=== PATIENT | female | born 1980 | race African-American/Black ===

== ENCOUNTER 2016-08-01 06:40 | Emergency (ER) | payer MEDICAID, OTHER ==
[~2016-08-01] VITALS: Ht 157.5 cm; Wt 120.0 kg
[~2016-08-01 06:40] MED LIST: HYDR-3533 PO
[2016-08-01 06:43] VITALS: BP 139/86; PULSE 114; RESP 16; TEMP 98.5; O2SAT 99
--- NOTE | 2016-08-01 07:18 | PD ---
HPI Chief Complaint: Psychiatric Symptoms Time Seen by Provider: 07:13 Travel History International Travel<30 days: No Contact w/Intl Traveler<30days: No Traveled to known affect area: No History of Present Illness HPI 35-year-old with increasing depression symptoms with past for 5 days. No history of previous mental health problems. She's been tearful and depressed. No stressors that she can identify. Lives with her family and . No suicidality. Here because she feels that she has a talk to somebody because she started crying on her way to work. No other complaints. History Past Medical History Narrative Medical Asthma : 3 Para: 3 Social History Alcohol Use: No Tobacco Use: No Allergies-Medications (Allergen,Severity, Reaction): Coded Allergies: [place] (Verified Allergy, Severe, Rash lips, 06/09/16) Pineapple (Verified Allergy, Severe, Rash lips, 06/09/16) *MDRO Multi-Drug Resistant Organism (Unverified Adverse Reaction, Unknown , 06/09/16) 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 Reported Meds & Prescriptions Reported Meds & Active Scripts Active Lortab (Hydrocodone-Acetaminophen) 5-325 Mg Tab 1-2 Tab PO Q6H PRN Review of Systems Except as stated in HPI: all other systems reviewed are Neg Physical Exam Narrative GENERAL: 35-year-old woman, tearful and sad. SKIN: Warm and dry. CARDIOVASCULAR: Warm and well perfused. RESPIRATORY: Normal rate and effort. MUSCULOSKELETAL: No gross deformity NEUROLOGICAL: Awake and alert. No gross deficits. Data Data Last Documented VS Vital Signs Date Time Temp Pulse Resp B/P Pulse Ox O2 Delivery O2 Flow Rate FiO2 08/01/16 06:43 98.5 114 16 139/86 99 MDM Medical Decision Making Medical Screen Exam Complete: Yes Emergency Medical Condition: Yes Differential Diagnosis Depression, adjustment reaction, menopause, other Narrative Course Medical decision making A 35-year-old presents to department Saturday of. Denies SI. Good social support. No history of mental health problems. Discussed options with patient. Offered to keep her to seek mental health screen her, discussed this with take most of the day. Also offered outpatient resources. Patient preferred outpatient resources at this time. She seems well versed for self- harm. Recommend outpatient follow-up. Patient Instructions: General Instructions Additional Instructions: Follow-up with mental health resources provided. Return to the emergent department any point if he feels like her having worsening depression, thoughts of hurting herself or others, or any other new or worsening symptoms. Med/Other Pt SpecificInfo: No Change to Meds Disposition: 01 DISCHARGE HOME Condition: Stable Ghassan Tavarez MD Aug 01, 2016 07:18
--- NOTE | 2016-08-01 07:43 | PD ---
Data Data Last Documented VS Vital Signs Date Time Temp Pulse Resp B/P Pulse Ox O2 Delivery O2 Flow Rate FiO2 08/01/16 06:43 98.5 114 16 139/86 99 MDM Supervised Visit with ADÁN: No Diagnosis Primary Impression: Depression Patient Instructions: General Instructions Departure Forms: Tests/Procedures Additional Instruction: Follow-up with mental health resources provided. Return to the emergent department any point if he feels like her having worsening depression, thoughts of hurting herself or others, or any other new or worsening symptoms. Disposition: 01 DISCHARGE HOME Condition: Stable Ghassan Tavarez MD Aug 01, 2016 07:43
== END 2016-08-01 07:50 | disposition home or self-care (01) ==
LOC: NETRI 06:40
DX: F32.9 Major depressive disorder, single episode, unspecified (principal); J45.909 Unspecified asthma, uncomplicated
CPT/HCPCS: 99283

== ENCOUNTER 2016-12-11 00:37 | Emergency (ER) | payer MEDICAID, OTHER ==
[~2016-12-11] VITALS: Ht 157.5 cm; Wt 120.0 kg
[2016-12-11 00:40] VITALS: BP 148/87; PULSE 106; RESP 16; TEMP 98.7; O2SAT 100
[2016-12-11 01:57] VITALS: BP 177/83; PULSE 103; PULSE 113; RESP 20; O2SAT 100
[2016-12-11] MEDS ORDERED: ALBU0.63 NEB (01:57)
[2016-12-11] MEDS ORDERED: predniSONE 20 MG TAB PO ONE (02:45)
[2016-12-11] MEDS: RESP: ALBUTEROL 2.5 MG/IPRATROPIUM 0.5 MG NEB (SCH) INH (02:47)
[2016-12-11] MEDS ORDERED: ALBU1AER5 INH (02:51)
[2016-12-11] MEDS ORDERED: PRED20 PO (02:51)
--- NOTE | 2016-12-11 02:56 | PD ---
HPI Chief Complaint: Respiratory Symptoms Time Seen by Provider: 01:52 Travel History International Travel<30 days: No Contact w/Intl Traveler<30days: No Traveled to known affect area: No History of Present Illness HPI The patient is a 35 year old female who presents to the [facility] emergency department with a history of shortness of breath that she reports began 2 days ago. The patient reports that she has a history of asthma and bronchitis. She reports that she has an associated dry cough. She denies having any nasal discharge or fever associated with this. She reports that she has been using her albuterol solution by nebulizer treatments more frequently. She denies having any other inhalers or a rescue inhaler to use when she is out. The patient denies having any chest pain or pressure. She denies having any lower extremity edema, calf pain, or erythema. She denies having any prior history of DVT or PE. The patient denies any neck pain, abdominal pain, vomiting , diarrhea, urinary symptoms, or neurologic symptoms. PFS Past Medical History Narrative Medical The patient's past medical history is significant for asthma, bronchitis, anemia , anxiety. Anemia: Yes Asthma: Yes Blood Disorders: No Anxiety: Yes Heart Rhythm Problems: No Cardiac Catheterization: No Cardiovascular Problems: Yes High Cholesterol: No Congestive Heart Failure: No Diabetes: Yes Patient Takes Glucophage: No Diminished Hearing: No Heparin Induced Thrombocytopen: No Hypertension: Yes Psychiatric: Yes Respiratory: Yes (asthma) Immunizations Current: Yes Migraines: Yes Tetanus Vaccination: < 5 Years Influenza Vaccination: Yes ?: Not : 3 Para: 3 Miscarriage: 0 : 0 Tubal Ligation: Yes Past Surgical History Narrative Surgical The patient's past surgical history is significant for a , bilateral tubal ligation, breast reduction Section: Yes Coronary Artery Bypass Graft: No Gynecologic Surgery: Yes (Breast reduction) Other Surgery: Yes (BREAST REDUCTION) Social History Alcohol Use: No Tobacco Use: No Substance Use: No Allergies-Medications (Allergen,Severity, Reaction): Coded Allergies: [place] (Verified Allergy, Severe, Rash lips, 12/11/16) Pineapple (Verified Allergy, Severe, Rash lips, 12/11/16) *MDRO Multi-Drug Resistant Organism (Unverified Adverse Reaction, Unknown , 12/11/16) 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 Reported Meds & Prescriptions Reported Meds & Active Scripts Active Prednisone 20 Mg Tab 40 Mg PO BID 5 Days Take 40 mg (2 tablets) daily for 5 days Proair Respiclick Inh (Albuterol Sulfate) 90 Mcg/Act Aerp 2 Puff INH Q4-6H PRN Reported Albuterol Neb (Albuterol Sulfate) 0.63 Mg/3 Ml Neb Unknown Dose NEB Q4HR NEB PRN Review of Systems Except as stated in HPI: all other systems reviewed are Neg General / Constitutional: No: Fever Eyes: No: Visual changes HENT: No: Headaches, Rhinorrhea, Congestion Cardiovascular: Positive: Dyspnea on exertion, No: Chest Pain or Discomfort Respiratory: Positive: Cough, Shortness of Breath, Wheezing Gastrointestinal: No: Nausea, Vomiting, Diarrhea, Abdominal Pain Genitourinary: No: Dysuria Musculoskeletal: No: Pain Skin: No Rash Neurologic: No: Weakness Psychiatric: No: Depression Endocrine: No: Polydipsia Hematologic/Lymphatic: No: Easy Bruising Physical Exam Narrative General: The patient is a well-developed well-nourished female in no acute distress Head and Neck exam: Head is normocephalic atraumatic. Eyes: EOMI, pupils are equal round and reactive to light. Nose: Midline septum with pink mucous membranes Mouth: Dentition unremarkable. Moist mucus membranes. Posterior oropharynx is not erythematous. No tonsillar hypertrophy. Uvula midline. Airway patent. Neck: No palpable lymphadenopathy. No nuchal rigidity. No thyromegaly. Cardiovascular: Regular rate and rhythm without murmurs, gallops, or rubs. Lungs: Soft expiratory wheezes audible posteriorly. No rhonchi, no crackles. No accessory muscle use. No paroxysmal abdominal breathing. No tripoding. Equal breath sounds are noted bilaterally. Abdomen: Soft, without tenderness to palpation in all 4 quadrants of the abdomen. No guarding, rebound, or rigidity. Normal bowel sounds are audible. No tenderness on palpation of McBurney's point. Extremities: No clubbing, cyanosis, or edema. 2+ pulses in all 4 extremities. No calf tenderness on palpation. Negative Homans signs. No palpable cords. Back: No costovertebral angle tenderness to palpation. Neurologic Exam: Grossly nonfocal. Skin Exam: No rash noted. Intact skin that is warm and dry. Data Data Last Documented VS Vital Signs Date Time Temp Pulse Resp B/P Pulse Ox O2 Delivery O2 Flow Rate FiO2 12/11/16 01:57 103 20 177/83 100 Room Air 12/11/16 00:40 98.7 Orders Ecg Monitoring (12/11/16 02:36) Oximetry (12/11/16 02:36) Prednisone (Deltasone) (12/11/16 02:45) Albuterol-Ipratropium Neb (Duoneb Neb) (12/11/16 02:45) MDM Medical Decision Making Medical Screen Exam Complete: Yes Emergency Medical Condition: Yes Medical Record Reviewed: Yes Differential Diagnosis Asthma exacerbation, versus pneumonia, versus pneumothorax Narrative Course During the course of the patients emergency department visit, the patients history, examination, and differential diagnosis were reviewed with the patient. The patient was placed on a diagrammer with oximetry and blood pressure monitoring. The patient was provided prednisone 40 mg by mouth 1, DuoNeb 1. The patient reported feeling improved. The patient is resting comfortably and feels better, is alert and in no distress. The patients results and examination findings were discussed with the patient. The repeat examination is unremarkable and benign. The history, exam, diagnostic testing, and current condition do not suggest any significant pathology to warrant further testing, continued ED treatment, admission, or surgical evaluation at this point. The vital signs have been stable. The patient does not have uncontrollable pain, intractable vomiting, or other significant symptoms. The patient's condition is stable and appropriate for discharge. The patient will pursue further outpatient evaluation with a primary care physician or other designated or consulting physician as indicated in the discharge instructions. The patient expressed understanding and was agreeable with this plan. Diagnosis Primary Impression: Asthma exacerbation Referrals: Primary Care Physician 2 days Patient Instructions: Asthma (ED), General Instructions Med/Other Pt SpecificInfo: Prescription(s) given Scripts Prednisone 20 Mg Tab40 Mg PO BID 5 Days Ref 0 Take 40 mg (2 tablets) daily for 5 days Prov:Oralia Gonzalez MD 12/11/16 Albuterol Powder Inh (Proair Respiclick Inh)90 Mcg/Act Aerp2 Puff INH Q4-6H PRN (SHORTNESS OF BREATH) #1 INHALER Ref 0 Prov:Oralia Gonzalez MD 12/11/16 Disposition: 01 DISCHARGE HOME Condition: Stable Oralia Gonzalez MD December 11, 2016 02:56
[2016-12-11 03:13] VITALS: O2SAT 96
== END 2016-12-11 03:27 | disposition home or self-care (01) ==
LOC: NEPC 00:37
DX: J45.901 Unspecified asthma with (acute) exacerbation (principal); E11.9 Type 2 diabetes mellitus without complications; I10 Essential (primary) hypertension; Z87.09 Personal history of other diseases of the respiratory system; Z86.2 Personal history of diseases of the blood and blood-forming organs and certain disorders involving the immune mechanism; Z86.59 Personal history of other mental and behavioral disorders; Z86.79 Personal history of other diseases of the circulatory system; Z86.69 Personal history of other diseases of the nervous system and sense organs
CPT/HCPCS: 94640; 94664; 99284; J7512

== ENCOUNTER 2016-12-19 11:01 | Emergency (ER) | payer MEDICAID ==
[~2016-12-19] VITALS: Ht 157.5 cm; Wt 120.0 kg
[~2016-12-19 11:01] MED LIST changes: +ALBU0.63 NEB; +ALBU1AER5 INH; -HYDR-3533 PO; +PRED20 PO
[2016-12-19 11:03] VITALS: BP 189/88; PULSE 106; RESP 24; TEMP 98.4; O2SAT 98
[2016-12-19] MEDS ORDERED: ASPIRIN 81 MG CHEW TAB PO ONE (11:45)
[2016-12-19] MEDS ORDERED: SODIUM CHLORIDE 0.9% FLUSH 10 ML FLUSH IVF PRN (11:45)
--- NOTE | 2016-12-19 11:47 | PD ---
HPI Chief Complaint: Chest Pain Time Seen by Provider: 11:43 Travel History International Travel<30 days: No Contact w/Intl Traveler<30days: No Traveled to known affect area: No History of Present Illness HPI Patient with a history of asthma, bronchitis, anemia, anxiety, and hypertension presents emergency Department complaining of substernal chest pain that she awoke with this morning. Patient states feels like "someone punched" her in the chest. Patient reports associated shortness of breath with this. Patient states does not feel like her asthma this feels different. Patient denies doing anything for prior to coming to the emergency department. Patient denies anything making it better or worse. Denies any associated diaphoresis, numbness or tingling, nausea, vomiting, abdominal pain, back pain, neck pain, or headache. Denies any recent travel or edema to the extremities. PFSH Past Medical History Anemia: Yes Asthma: Yes Blood Disorders: No Anxiety: Yes Heart Rhythm Problems: No Cardiac Catheterization: No Cardiovascular Problems: Yes High Cholesterol: No Congestive Heart Failure: No Diabetes: Yes Diminished Hearing: No Heparin Induced Thrombocytopen: No Hypertension: Yes Psychiatric: Yes Respiratory: Yes (ASTHMA BRONCHITIS) Immunizations Current: Yes Migraines: Yes ?: Not : 3 Para: 3 Miscarriage: 0 : 0 Tubal Ligation: Yes Past Surgical History Section: Yes Coronary Artery Bypass Graft: No Gynecologic Surgery: Yes (Breast reduction) Other Surgery: Yes (BREAST REDUCTION) Social History Alcohol Use: No Tobacco Use: No Substance Use: No Allergies-Medications (Allergen,Severity, Reaction): Coded Allergies: [place] (Verified Allergy, Severe, Rash lips, 12/19/16) Pineapple (Verified Allergy, Severe, Rash lips, 12/19/16) *MDRO Multi-Drug Resistant Organism (Unverified Adverse Reaction, Unknown , 12/19/16) 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 Reported Meds & Prescriptions Reported Meds & Active Scripts Active Proair Respiclick Inh (Albuterol Sulfate) 90 Mcg/Act Aerp 2 Puff INH Q4-6H PRN Reported Aspirin 325 Mg Tab 325 Mg PO DAILY Albuterol Neb (Albuterol Sulfate) 0.63 Mg/3 Ml Neb Unknown Dose NEB Q4HR NEB PRN Review of Systems Except as stated in HPI: all other systems reviewed are Neg Physical Exam Narrative GENERAL: Well-developed, overly nourished, in no acute distress, and non-ill appearing. SKIN: Focused skin assessment warm and dry. HEAD: Atraumatic. Normocephalic. EYES: Pupils equal and round. EOMI. No scleral icterus. No injection or drainage. ENT: No nasal bleeding or discharge. Mucous membranes pink and moist. NECK: Trachea midline. No JVD. Supple. No nuclear rigidity. CARDIOVASCULAR: Regular rate and rhythm. No murmur appreciated. Radial pulses 2+, intact, and equal bilaterally. RESPIRATORY: No accessory muscle use. No respiratory distress. Clear to auscultation. Breath sounds equal bilaterally. Patient reports her vision tenderness over the upper sternum oversight of where her pain is. GASTROINTESTINAL: Abdomen soft, non-tender, nondistended. Hepatic and splenic margins not palpable. Normal bowel sounds 4. No pulsatile mass. MUSCULOSKELETAL: No obvious deformities. No clubbing. No cyanosis. No edema. Full range of motion. NEUROLOGICAL: Awake and alert. No obvious cranial nerve deficits. Motor grossly within normal limits. Normal speech. PSYCHIATRIC: Appropriate mood and affect; insight and judgment normal. Data Data Last Documented VS Vital Signs Date Time Temp Pulse Resp B/P Pulse Ox O2 Delivery O2 Flow Rate FiO2 12/19/16 14:48 97 23 150/82 99 Room Air 12/19/16 11:03 98.4 Orders Electrocardiogram (12/19/16 ) Electrocardiogram (12/19/16 11:41) Basic Metabolic Panel (Bmp) (12/19/16 11:41) B-Type Natriuretic Peptide (12/19/16 11:41) Ckmb (Isoenzyme) Profile (12/19/16 11:41) Complete Blood Count With Diff (12/19/16 11:41) D-Dimer (12/19/16 11:41) Magnesium (Mg) (12/19/16 11:41) Prothrombin Time / Inr (Pt) (12/19/16 11:41) Act Partial Throm Time (Ptt) (12/19/16 11:41) Troponin I (12/19/16 11:41) Chest, Single Ap (12/19/16 11:41) Ecg Monitoring (12/19/16 11:41) Bilateral Bp Monitoring (12/19/16 11:41) Iv Access Insert/Monitor (12/19/16 11:41) Oximetry (12/19/16 11:41) Oxygen Administration (12/19/16 11:41) Aspirin Chew (Aspirin Chew) (12/19/16 11:45) Sodium Chloride 0.9% Flush (Ns Flush) (12/19/16 11:45) Electrocardiogram (12/19/16 ) Ketorolac Inj (Toradol Inj) (12/19/16 12:30) Ct Pulmonary Angiogram (12/19/16 ) Ckmb (Isoenzyme) Profile (12/19/16 13:42) Troponin I (12/19/16 13:42) Iohexol 350 Inj (Omnipaque 350 Inj) (12/19/16 13:47) Electrocardiogram (12/19/16 ) Electrocardiogram (12/19/16 ) Labs Laboratory Tests Test 12/19/16 12/19/16 11:50 14:50 White Blood Count 11.9 TH/MM3 Red Blood Count 4.19 MIL/MM3 Hemoglobin 10.2 GM/DL Hematocrit 32.2 % Mean Corpuscular Volume 76.9 FL Mean Corpuscular Hemoglobin 24.3 PG Mean Corpuscular Hemoglobin 31.6 % Concent Red Cell Distribution Width 17.5 % Platelet Count 346 TH/MM3 Mean Platelet Volume 7.5 FL Neutrophils (%) (Auto) 61.7 % Lymphocytes (%) (Auto) 30.1 % Monocytes (%) (Auto) 6.3 % Eosinophils (%) (Auto) 1.5 % Basophils (%) (Auto) 0.4 % Neutrophils # (Auto) 7.3 TH/MM3 Lymphocytes # (Auto) 3.6 TH/MM3 Monocytes # (Auto) 0.8 TH/MM3 Eosinophils # (Auto) 0.2 TH/MM3 Basophils # (Auto) 0.1 TH/MM3 CBC Comment DIFF FINAL Differential Comment Prothrombin Time 10.3 SEC Prothromb Time International 0.9 RATIO Ratio Activated Partial 29.4 SEC Thromboplast Time D-Dimer Quantitative (PE/DVT) 0.51 MG/L FEU Sodium Level 136 MEQ/L Potassium Level 4.5 MEQ/L Chloride Level 106 MEQ/L Carbon Dioxide Level 24.0 MEQ/L Anion Gap 6 MEQ/L Blood Urea Nitrogen 13 MG/DL Creatinine 0.72 MG/DL Estimat Glomerular Filtration 110 ML/MIN Rate Random Glucose 156 MG/DL Calcium Level 8.0 MG/DL Magnesium Level 2.2 MG/DL Total Creatine Kinase 94 U/L 48 U/L Troponin I LESS THAN 0.02 LESS THAN 0.02 NG/ML NG/ML B-Type Natriuretic Peptide 3 PG/ML MDM Medical Decision Making Medical Screen Exam Complete: Yes Emergency Medical Condition: Yes Interpretation(s) EKG reviewed by Dr. Narayan shows sinus tachycardia. Ventricular rate of 100. No STEMI. Chest x-ray read by radiologist shows: No acute cardiopulmonary disease identified. Repeat EKG reviewed by Dr. Narayan shows sinus rhythm with ventricular rate of 89. No STEMI. CT pulmonary angiogram read by the radiologist shows: Negative for pulmonary emboli. Repeat third EKG reviewed by Dr. Narayan shows normal sinus rhythm with ventricular rate of 94. No STEMI. Differential Diagnosis Acute coronary syndrome, pneumonia, pneumothorax, costochondritis, anxiety, PE, CHF, sinus arrhythmia, dehydration, electrolyte abnormality, other Narrative Course Patient seen and examined. EKG was reviewed. Initial laboratory and radiological studies were ordered. Patient was given a dose of aspirin. IV was established. 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 Pain initial labs if everything is negative for plan to do a delta troponin will discharge patient for outpatient follow-up, however if there are any abnormal lab values or anything else changes will reassess. Discussed patient with Dr. Narayan, who is in agreement with plan of care. 1230 d-dimer slightly elevated. We'll check a CTA to rule out PE. This was discussed with patient. Patient reports improvement of symptoms status post IV Toradol. 1425 patient reassessed. Resting in bed in no acute distress. Patient continues to remain chest pain-free status post IV Toradol. Discussed CT findings. Awaiting repeat troponin. All questions were answered. The patients chest pain by history and evaluation appears noncardiac, nor noncardiopulmonary in etiology. Evaluation revealed no evidence of cardiac involvement at this time. There is no clinical evidence to suggest thoracic aortic aneurysms or pathology, nor evidence of pulmonary embolism on CTA, pericarditis, pneumothorax, nor pneumonia at this time. The patient has minimal risk factors for cardiac disease, pulmonary embolism or aortic disease. Clinical suspicion was discussed with patient and the patient was referred to and instructed to follow up with Cardiology for potential outpatient evaluation. I discussed this management with the patient and the patient understands the importance or acute follow up with cardiology for outpatient stress testing. The patient was instructed to return at any time if chest pain recurs, persists, changes or worsens in anyway while awaiting follow up. The patient agreed with plan. Patient in no obvious distress upon re-evaluation. All pertinent laboratory/ Radiology result(s) discussed with patient. Discussed patient with Dr. Narayan prior to discharge, who saw and evaluated the patient and is in agreement with plan of care and disposition.. Any questions/concerns in reference to patient diagnosis/condition discussed and clarified prior to patient's discharge. Reinforced sheer importance of close follow up with patient's primary physician or primary care clinic and/or sock turner. Instructed patient to return to ED immediately, if symptoms return/worsen. Pt showed understanding of above instructions. Further instructions and recommendations were detailed in discharge paperwork. Pt ambulated without difficulty out of ED at discharge. Diagnosis Primary Impression: Atypical chest pain Referrals: [facility] Primary Care Physician Patient Instructions: Chest Pain (ED), General Instructions, Noncardiac Chest Pain (ED) Additional Instructions: Follow-up with your primary care physician and sock turner in 2-5 days for further evaluation. Return to the emergency department if symptoms get worse. Disposition: 01 DISCHARGE HOME Condition: Stable Edward Carrizales December 19, 2016 11:47
[2016-12-19 11:53] VITALS: BP 159/87; PULSE 93; RESP 15; O2SAT 99
[2016-12-19 12:00] LABS: AUTOMATED NEUTROPHIL # 7.3 TH/MM3 (1.8-7.7); BASOPHIL # 0.1 TH/MM3 (0-0.2); BASOPHIL % 0.4 % (0.0-2.0); EOSINOPHIL # 0.2 TH/MM3 (0-0.4); EOSINOPHIL % 1.5 % (0.0-4.0); HEMATOCRIT 32.2 % (35.0-46.0); HEMO FLAGS DIFF FINAL; LYMPH % 30.1 % (9.0-44.0); LYMPHOCYTE # 3.6 TH/MM3 (1.0-4.8); MEAN CELL VOLUME 76.9 FL (80.0-100.0); MEAN CORPUSCULAR HEMOGLOBIN 24.3 PG (27.0-34.0); MEAN CORPUSCULAR HGB CONC 31.6 % (32.0-36.0); MONO % 6.3 % (0.0-8.0); NEUT % 61.7 % (16.0-70.0); PLATELET COUNT 346 TH/MM3 (150-450); RED BLOOD COUNT 4.19 MIL/MM3 (4.00-5.30); RED CELL DISTRIBUTION WIDTH 17.5 % (11.6-17.2); WHITE BLOOD COUNT 11.9 TH/MM3 (4.0-11.0)
[2016-12-19] MEDS ORDERED: ASPI325T PO (12:06)
--- NOTE | 2016-12-19 12:12 | RADRPT ---
EXAM DATE/TIME: 12/19/2016 11:57 [facility] COMPARISON: CHEST SINGLE AP, February 13, 2016, 9:35. INDICATIONS : Chest pain today. MEDICAL HISTORY : Hypertension. Asthma. SURGICAL HISTORY : None. ENCOUNTER: Initial ACUITY: 1 day PAIN SCORE: 4/10 LOCATION: Bilateral chest FINDINGS: Single AP view of the chest. The lungs are clear. Cardiomediastinal silhouette within normal limits. No evidence of pleural effusion or pneumothorax. CONCLUSION: No acute cardiopulmonary disease identified. Priyank Wolfe MD on December 19, 2016 at 12:09 Board Certified Radiologist. This report was verified electronically.
[2016-12-19 12:18] LABS: APTT (PATIENT) 29.4 SEC (24.3-30.1); INTERNATIONAL NORMALIZED RATIO 0.9 RATIO; PROTHROMBIN TIME - PATIENT 10.3 SEC (9.8-11.6)
[2016-12-19 12:28] LABS: ANION GAP 6 MEQ/L (5-15); BLOOD UREA NITROGEN 13 MG/DL (7-18); CHLORIDE 106 MEQ/L (98-107); GLOMERULAR FILTRATION RATE 110 ML/MIN (>89); MAGNESIUM 2.2 MG/DL (1.5-2.5); SODIUM (NA) 136 MEQ/L (136-145)
[2016-12-19 12:29] LABS: CREATINE KINASE 94 U/L (26-192); POTASSIUM 4.5 MEQ/L (3.5-5.1)
[2016-12-19] MEDS ORDERED: KETOROLAC TROMETHAMINE 30 MG/ML (IVP) VIAL IV PUSH ONE (12:30)
[2016-12-19 13:08] VITALS: BP 189/77; PULSE 91; RESP 16; O2SAT 100
[2016-12-19] MEDS ORDERED: IOHEXOL 350 MG/ML 10 ML VIAL (for RAD DIAG) IV ONE (13:47)
--- NOTE | 2016-12-19 14:02 | RADRPT ---
EXAM DATE/TIME: 12/19/2016 13:33 [facility] COMPARISON: No previous studies available for comparison. INDICATIONS : Chest pressure since this morning IV CONTRAST: 75 cc Omnipaque 350 (iohexol) IV RADIATION DOSE: 11.76 CTDIvol (mGy) MEDICAL HISTORY : Cardiovascular disease. Hypertension. Diabetes mellitus type 2. SURGICAL HISTORY : Tubal ligation. ENCOUNTER: Initial ACUITY: 1 day PAIN SCALE: 2/10 LOCATION: chest TECHNIQUE: Volumetric scanning of the chest was performed using a pulmonary embolism protocol MIP images were reconstructed. Using automated exposure control and adjustment of the mA and/or kV acco rding to patient size, radiation dose was kept as low as reasonably achievable to obtain optimal diag nostic quality images. FINDINGS: PULMONARY ARTERIES:No filling defects are seen in the pulmonary arteries through the segmental level. LUNGS: There is no consolidation or pneumothorax . No concerning pulmonary nodule is visualized. PLEURAE: There is no pleural thickening or pleural effusion. MEDIASTINUM: There is good visualization of the great vessels of the middle mediastinum. No evid ence of mediastinal or hilar adenopathy/mass. MUSCULOSKELETAL: Within normal limits for patient age. MISCELLANEOUS: The visualized upper abdominal organs demonstrate no acute abnormality. CONCLUSION: Negative for pulmonary emboli. Vasu Delvalle MD FACR on December 19, 2016 at 13:53 Board Certified Radiologist. This report was verified electronically.
[2016-12-19 14:48] VITALS: BP 150/82; PULSE 97; RESP 23; O2SAT 99
[2016-12-19 15:49] LABS: CREATINE KINASE 48 U/L (26-192)
--- NOTE | 2016-12-20 11:33 | EKG ---
Date Performed: 12/19/2016 Time Performed: 16:00:05 PTAGE: 36 years EKG: Sinus rhythm NORMAL ECG PREVIOUS TRACING : 12/19/2016 12.30 Compared to prior tracing no significant change DOCTOR: Deni Díaz Interpretating Date/Time 12/20/2016 11:32:13
--- NOTE | 2016-12-20 11:53 | EKG ---
Date Performed: 12/19/2016 Time Performed: 12:30:58 PTAGE: 36 years EKG: Sinus rhythm NORMAL ECG PREVIOUS TRACING : 12/19/2016 11.15 Compared to prior tracing no significant change DOCTOR: Deni Díaz Interpretating Date/Time 12/20/2016 11:52:48
--- NOTE | 2016-12-20 12:03 | EKG ---
Date Performed: 12/19/2016 Time Performed: 11:15:37 PTAGE: 36 years EKG: SINUS TACHYCARDIA NONSPECIFIC T-WAVE ABNORMALITY ABNORMAL RHYTHM ECG PREVIOUS TRACING : 06/09/2016 18.48 Compared to prior tracing no significant change DOCTOR: Deni Díaz Interpretating Date/Time 12/20/2016 12:02:28
== END 2016-12-19 17:19 | disposition home or self-care (01) ==
LOC: NEPE 11:01
DX: R07.89 Other chest pain (principal); R00.0 Tachycardia, unspecified; R06.02 Shortness of breath; J45.909 Unspecified asthma, uncomplicated; I10 Essential (primary) hypertension; E11.9 Type 2 diabetes mellitus without complications
CPT/HCPCS: 71010; 71275; 80048; 82550; 83735; 83880; 84484; 85025; 85379; 85610; 85730; 93005; 96374; 99285; J1885; Q9967

== ENCOUNTER 2017-07-27 23:27 | Emergency (ER) | payer MEDICAID ==
[~2017-07-27] VITALS: Ht 157.5 cm; Wt 123.0 kg
[~2017-07-27 23:27] MED LIST changes: -ALBU1AER5 INH; +ALBUAER3 INH; +ASPI-183 PO; +CITA10TA4 PO; +LISI-515 PO; +METF500T PO; -PRED20 PO; +VITA100018 PO
[2017-07-27 23:29] VITALS: BP 146/65; PULSE 108; RESP 16; TEMP 98; O2SAT 98
[2017-07-27] MEDS ORDERED: PERI0.126 SWISH-SPIT (23:54)
[2017-07-27] MEDS ORDERED: NAPR500 PO (23:54)
--- NOTE | 2017-07-27 23:55 | PD ---
HPI Chief Complaint: Oral / Dental Pain or Problem Time Seen by Provider: 23:49 Travel History International Travel<30 days: No Contact w/Intl Traveler<30days: No Traveled to known affect area: No History of Present Illness HPI 36-year-old female presents emergency department for evaluation of bilateral mandibular molar pain. This is radiating to her years and causing severe, 10 out of 10, throbbing pain. It is constant in nature. Patient denies trauma. She states that her wisdom teeth "give her trouble" and she also has "bad teeth. " This is been intermittently occurring for an extended amount of time, however this exacerbation is worse as of yesterday. Patient has not sought dental evaluation. She has no other symptoms to report. PFSH Past Medical History Alzheimer's Disease: Yes Anemia: Yes Asthma: Yes Blood Disorders: No Anxiety: Yes Heart Rhythm Problems: No Cardiac Catheterization: No Cardiovascular Problems: Yes High Cholesterol: No Congestive Heart Failure: No Diabetes: Yes Patient Takes Glucophage: Yes Diminished Hearing: No Heparin Induced Thrombocytopen: No Hypertension: Yes Psychiatric: Yes Respiratory: Yes (ASTHMA, BRONCHITIS) Immunizations Current: Yes Migraines: Yes ?: Not LMP: 07/27/17 : 3 Para: 3 Miscarriage: 0 : 0 Tubal Ligation: Yes Past Surgical History Section: Yes Coronary Artery Bypass Graft: No Gynecologic Surgery: Yes (Breast reduction) Other Surgery: Yes (BREAST REDUCTION) Social History Alcohol Use: Yes (OCCASIONALLY) Tobacco Use: No Substance Use: No Allergies-Medications (Allergen,Severity, Reaction): Coded Allergies: zee (Verified Allergy, Severe, Rash lips, 07/27/17) pineapple (Verified Allergy, Severe, Rash lips, 07/27/17) *MDRO Multi-Drug Resistant Organism (Verified Adverse Reaction, Unknown, ) 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 Reported Meds & Prescriptions Reported Meds & Active Scripts Active Peridex Liq (Chlorhexidine Gluconate (Mouth) Liq) 0.12% Soln 15 Ml SWISH-SPIT BID Naprosyn (Naproxen) 500 Mg Tab 500 Mg PO BID PRN Lisinopril 20 Mg Tab 20 Mg PO DAILY Proair Hfa 8.5 GM Inh (Albuterol Sulfate) 90 Mcg/Act Aer 2 Puff INH Q4-6H PRN 108 mcg/actuation Metformin (Metformin HCl) 500 Mg Tab 500 Mg PO DAILY With a meal Vitamin D3 (Cholecalciferol) 1,000 Unit Tab 1,000 Units PO DAILY Citalopram (Citalopram Hydrobromide) 10 Mg Tab 10 Mg PO DAILY Reported Aspirin 325 Mg Tab 325 Mg PO DAILY Albuterol Neb (Albuterol Sulfate) 0.63 Mg/3 Ml Neb Unknown Dose NEB Q4HR NEB PRN Review of Systems Except as stated in HPI: all other systems reviewed are Neg Physical Exam Narrative GENERAL: Well-nourished, well-developed female patient, in no acute distress SKIN: Focused skin assessment warm/dry. HEAD: Normocephalic. Without erythema or edema EARS: Bilateral pinnae and external canals appear within normal limits. Bilateral tympanic membranes without erythema, dullness or perforation. EYES: No scleral icterus. No injection or drainage. DENTAL: No loose or chipped teeth. The left mandibular first molar is with a large dental caries. Positive gingival erythema. No malocclusion. NECK: Supple, trachea midline. No JVD or lymphadenopathy. CARDIOVASCULAR: Regular rate and rhythm without murmurs, gallops, or rubs. RESPIRATORY: Breath sounds equal bilaterally. No accessory muscle use. Data Data Last Documented VS Vital Signs Date Time Temp Pulse Resp B/P (MAP) Pulse Ox O2 Delivery O2 Flow Rate FiO2 07/28/17 00:12 07/27/17 23:29 98.0 108 16 98 Room Air Orders Orders Ibuprofen (Motrin) (07/28/17 00:00) Ed Discharge Order (07/27/17 23:52) MDM Medical Decision Making Medical Screen Exam Complete: Yes Emergency Medical Condition: Yes Medical Record Reviewed: Yes Differential Diagnosis Dental caries versus pulpitis versus gingivitis versus periodontal disease Narrative Course 36-year-old female presents emergency department for evaluation of dental pain. Patient appears without distress. Her vital signs are stable. Patient does have dental caries with no dental abscess appreciated. She is counseled on care and encouraged follow-up with a dentist as soon as possible. She agrees to return immediately with any acute worsening of symptoms. Diagnosis Primary Impression: Dentalgia Additional Impression: Dental caries Referrals: Dentist Primary Care Physician Patient Instructions: Dental Caries (ED), General Instructions Additional Instructions: Seek dental evaluation Follow up with your primary care provider Return immediately with acute worsening of symptoms Med/Other Pt SpecificInfo: Prescription(s) given Scripts Chlorhexidine Gluconate (Mouth) Liq (Peridex Liq) 0.12% Soln 15 ML SWISH-SPIT BID, #473 ML 0 Refills Prov: Leah Miller 07/27/17 Naproxen (Naprosyn) 500 Mg Tab 500 MG PO BID Y for PAIN SCALE 1 TO 10, #30 TAB 0 Refills Prov: Leah Miller 07/27/17 Disposition: 01 DISCHARGE HOME Condition: Stable Leah Miller Jul 27, 2017 23:55
[2017-07-28] MEDS ORDERED: IBUPROFEN 800 MG TAB PO ONE
== END 2017-07-28 00:13 | disposition home or self-care (01) ==
LOC: NEPD 23:27
DX: K02.9 Dental caries, unspecified (principal); G30.9 Alzheimer's disease, unspecified; F02.80 Dementia in other diseases classified elsewhere, unspecified severity, without behavioral disturbance, psychotic disturbance, mood disturbance, and anxiety; D64.9 Anemia, unspecified; J45.909 Unspecified asthma, uncomplicated; E11.9 Type 2 diabetes mellitus without complications; I10 Essential (primary) hypertension; F41.9 Anxiety disorder, unspecified; Z79.51 Long term (current) use of inhaled steroids
CPT/HCPCS: 99283